=== PATIENT | female | born 2005 | race Two or more races ===

== ENCOUNTER 2025-07-08 22:49 | Emergency (ER) | payer OTHER, SELFPAY ==
[2025-07-08 22:56] VITALS: BP 108/74
[2025-07-08 23:18] LABS: Hematocrit 35.5 % (37.0-47.0); Hemoglobin 11.9 g/dL (12.0-16.0); Mean Corp Hgb Conc. 33.5 g/dL (33.0-37.0); Mean Corpuscular Volume 82.6 fL (81.0-99.0); Platelet Count 349 10^3/uL (130-400); Red Cell Dist. Width 12.2 % (11.5-14.5)
[2025-07-08 23:19] LABS: HCG, Urine Qualitative Screen Negative
[2025-07-08 23:20] LABS: Urine Character Slightly Cloudy (Clear)
[2025-07-08 23:32] LABS: Urine Red Blood Cell 0-2 /HPF (0-2); Urine Squamous Cell 0-2 /LPF (Few)
[2025-07-08 23:47] LABS: Blood Urea Nitrogen 10 mg/dl (7-17); Calcium 9.5 mg/dl (8.4-10.2); Carbon Dioxide 24 mmol/L (22-30); Chloride 108 mmol/L (98-107); Glucose 100 mg/dl (70-99); Potassium 3.9 mmol/L (3.5-5.1); Sodium 135 mmol/L (135-145); eGFR > 60.00
[2025-07-09 00:24] VITALS: BP 115/72
[2025-07-09 00:25] VITALS: BMI 25.0
[2025-07-09 01:00] VITALS: BP 107/68
[2025-07-09 02:00] VITALS: BP 112/66
--- NOTE | 2025-07-09 02:23 | DOWNTIME ---
There was a [facility] Downtime on 07/09/2025 from 0100 to 07/09/2025 at 0215. Downtime documentation of patient's care, including medication administrations, has been reconciled in the electronic record per guidelines. Refer to the
patient's paper chart under the miscellaneous tab to see printed paper medication records and downtime forms.
[2025-07-09 02:45] LABS: COVID-19 Antigen Negative (Negative)
--- NOTE | 2025-07-09 02:56 | ED.GENMED ---
History of Present Illness
<Bernabe Del Valle MD - Last Filed: 07/10/25 05:36>
General
Chief Complaint: Abdominal Symptoms
Source: patient
Exam Limitations: none
History of Present Illness
History of Present Illness:
Patient complaining of nausea. Some upper abdominal pain. Describing some respiratory symptoms over the last 3 to 4 days with congestion and cough. No current UTI symptoms. Had a UTI about a month ago. No vaginal discharge. No rash. No
photophobia. No neck pain.
Past History
<Bernabe Del Valle MD - Last Filed: 07/10/25 05:36>
Past History
ED Past Surgical History: Gynecological (Breast biopsy)
Phy Exam
<Bernabe Del Valle MD - Last Filed: 07/10/25 05:36>
Physical Exam
Physical Exam:
GENERAL: Alert and oriented in no apparent distress
EYE: Orbits normal.
NECK: Supple
CARDIAC: Regular rate and rhythm without any obvious murmurs.
LUNGS: Clear breath sounds,normal
ABDOMEN: Soft, minimal epigastric tenderness. No rebound or guarding no mass or hernia. No CVA tenderness
NEUROLOGICAL: Alert and oriented , grossly non-focal
SKIN: Warm and dry, no rash or lesion, no discoloration, skin intact.
MUSCULOSKELETAL: No edema,no deformity.Good color
PSYCH: Normal and appropriate interaction.
Course
<Bernaeb Del Valle MD - Last Filed: 07/10/25 05:36>
Orders/Labs/Results
Orders:
Orders
07/08/25 23:00
Test Result ONCE
07/08/25 23:06
Basic Metabolic Panel Urgent
Complete Blood Count/No Diff Urgent
07/08/25 23:12
HCG, Urine Qualitative Screen Urgent
Date Specimen was Collected: 07/08/25
Time Specimen was Collected: 23:00
Urinalysis Urgent
Date Specimen was Collected: 07/08/25
Time Specimen was Collected: 23:00
Urine Microscopic Urgent
Date Specimen was Collected: 07/08/25
Time Specimen was Collected: 23:00
07/09/25
CR Chest - 2 Views Urgent
Reason For Exam: cough
07/09/25 02:10
COVID-19 Antigen Routine
Lipase Routine
Edkmp-Najv-Httsagm Routine
Influenza A+B Rapid Molecular Routine
[place] Source: [facility]
Specimen Description:
07/09/25 02:25
Ondansetron Injectable [Zofran] 4 mg .ROUTE .STK-MED ONE
07/09/25 03:03
Add On- LAB Urgent
Tests Added?: urine gc/chlymadia
07/09/25 03:04
US Abdomen Complete/Upper Urgent
Comment:
Reason For Exam: Upper abdominal pain
Abnormal Lab Results
07/08/25 07/08/25
23:06 23:12
Hgb 11.9 L g/dL
(12.0-16.0)
Hct 35.5 L %
(37.0-47.0)
Chloride 108 H mmol/L
(98-107)
Glucose 100 H mg/dl
(70-99)
Urine Occult Blood 4+ A
(Negative)
Ur Leukocyte Esterase 1+ A
(Negative)
Urine WBC 6-10 A /HPF
(0-5)
Urine Albumin 1+ A
(Neg - Trace)
07/08/25 23:06
07/08/25 23:06
Vital Signs
Initial and Last Documented VS:
Initial Vital Signs
Temp Pulse Resp BP Pulse Ox
98.1 F 72 18 108/74 100
07/08/25 22:56 07/08/25 22:56 07/08/25 22:56 07/08/25 22:56 07/08/25 22:56
Last Documented Vital Signs
Temp Pulse Resp BP Pulse Ox
98.1 F 68 18 109/77 100
07/08/25 22:56 07/09/25 05:36 07/08/25 22:56 07/09/25 04:00 07/09/25 05:36
<Karel Narvaez, DO - Last Filed: 07/09/25 05:29>
Orders/Labs/Results
Orders:
Orders
07/08/25 23:00
Test Result ONCE
07/08/25 23:06
Basic Metabolic Panel Urgent
Complete Blood Count/No Diff Urgent
07/08/25 23:12
HCG, Urine Qualitative Screen Urgent
Date Specimen was Collected: 07/08/25
Time Specimen was Collected: 23:00
Urinalysis Urgent
Date Specimen was Collected: 07/08/25
Time Specimen was Collected: 23:00
Urine Microscopic Urgent
Date Specimen was Collected: 07/08/25
Time Specimen was Collected: 23:00
07/09/25
CR Chest - 2 Views Urgent
Reason For Exam: cough
07/09/25 02:10
COVID-19 Antigen Routine
Lipase Routine
Nbhlh-Ziea-Kpkglio Routine
Influenza A+B Rapid Molecular Routine
[place] Source: [facility]
Specimen Description:
07/09/25 02:25
Ondansetron Injectable [Zofran] 4 mg .ROUTE .STK-MED ONE
07/09/25 03:03
Add On- LAB Urgent
Tests Added?: urine gc/chlymadia
07/09/25 03:04
US Abdomen Complete/Upper Urgent
Comment:
Reason For Exam: Upper abdominal pain
Abnormal Lab Results
07/08/25 07/08/25
23:06 23:12
Hgb 11.9 L g/dL
(12.0-16.0)
Hct 35.5 L %
(37.0-47.0)
Chloride 108 H mmol/L
(98-107)
Glucose 100 H mg/dl
(70-99)
Urine Occult Blood 4+ A
(Negative)
Ur Leukocyte Esterase 1+ A
(Negative)
Urine WBC 6-10 A /HPF
(0-5)
Urine Albumin 1+ A
(Neg - Trace)
07/08/25 23:06
07/08/25 23:06
Vital Signs
Initial and Last Documented VS:
Initial Vital Signs
Temp Pulse Resp BP Pulse Ox
98.1 F 72 18 108/74 100
07/08/25 22:56 07/08/25 22:56 07/08/25 22:56 07/08/25 22:56 07/08/25 22:56
Last Documented Vital Signs
Temp Pulse Resp BP Pulse Ox
98.1 F 68 18 109/77 100
07/08/25 22:56 07/09/25 05:36 07/08/25 22:56 07/09/25 04:00 07/09/25 05:36
<Bernabe Del Valle MD - Last Filed: 07/10/25 05:36>
MDM/Problems Addressed
Differential Diagnosis Includes:
Symptoms described are very likely viral in nature. No serious findings on exam. No CVA tenderness. No surgical abdomen. Neck is supple. No rash. Nontoxic in appearance. Chest x-ray is negative. Labs are stable. Urine has +1 leukocyte and
6-10 whites but is otherwise unremarkable.
<Bernabe Del Valle MD - Last Filed: 07/10/25 05:36>
*Radiology
Radiology exam reviewed: preliminary read by ED provider (neg) and radiology read reviewed (neg us)
*Pulse Oximetry
SaO2: 99
Oxygen Mode of Delivery: Room air
Patient hypoxic: no
*Critical Care Note
Total Time (30-74mins, 75-104mins- exclusive of procedures): Not Applicable
<Karel Narvaez DO - Last Filed: 07/09/25 05:29>
Update Note
Update Note:
NAME: CATY GRAHAM
DATE OF EXAM: 07/09/2025
Patient No: [id number]
Physician: MILLY^JANICE
Date of : 2005
Past Medical History (entered by Technologist):
Reason For Exam (entered by Technologist):
Other Notes (entered by Technologist):
Additional Information (per [facility] Radiologist): Nausea and abdominal pain
ABDOMINAL ULTRASOUND
IMPRESSION
The gallbladder and visualized biliary system are unremarkable. No gallstones or sonographic Horvath's sign. Kidneys and spleen are unremarkable. Remainder of the visualized upper abdomen is unremarkable.
Case finalized on 07/09/25 04:57 EDT
Ana Elizabeth M.D.
This report has been electronically signed and verified by the Radiologist whose name is printed above.
ED Attending Note
<Bernabe Del Valle MD - Last Filed: 07/10/25 05:36>
-
Portions of this chart may have been created with voice recognition software.� Occasional wrong word or��sound alike� substitutions may have occurred due to the inherent limitations of voice recognition software.
Discharge Plan
Departure
Patient Disposition: Home (Routine Discharge)
Date of Disposition: 07/09/25
Time of Disposition: 05:29
Patient with high blood pressure during this ER visit?: No
Discharge Problem:
Abdominal pain, Acute viral syndrome
Instructions: Abdominal Pain
Prescriptions:
New
ondansetron 4 mg tablet,disintegrating
4 mg PO Q6H 5 Days Qty: 20 0RF
Referrals:
Aubrey MOORE [Other]
Interventions
Interventions:
*Risk Screen - Suicide Last Done: 07/08/25 22:56
*General Assessment Last Done: 07/09/25 00:25
*Neglect/Abuse Screening Last Done: 07/08/25 22:56
*ED- Fall Risk Assessment Last Done: 07/09/25 00:25
*ED COVID-19 Vaccine History Last Done: 07/09/25 00:25
*ED Influenza Vaccine History Last Done: 07/09/25 00:25
*Nursing Disposition Last Done: 07/09/25 05:36
HB-Mokacd-Gstbpjgrjl Assessment Last Done: 07/09/25 00:25
ED-Female Genitourinary Assessment Last Done: 07/09/25 00:25
Discharge Date and Time
Discharge Date/Time: 07/09/25 05:36
Print Language: DIVEHI
[2025-07-09 02:57] LABS: ALT (SGPT) 12 U/L (0-35); AST (SGOT) 19 U/L (14-36); Albumin 4.2 g/dl (3.5-5.0); Alkaline Phosphatase 64 U/L (38-126); Lipase 26 U/L (23-300); Total Protein 7.2 g/dl (6.3-8.2)
[2025-07-09 03:00] VITALS: BP 116/67
[2025-07-09 04:00] VITALS: BP 109/77
== END 2025-07-09 05:36 | disposition home or self-care (01) ==
LOC: EMR 22:49
PROVIDERS: Student in an Organized Health Care Education/Training Program; EMERGENCY PHYSICIAN Emergency Medicine
DX: R11.0 Nausea (principal); R10.30 Lower abdominal pain, unspecified; Z11.52 Encounter for screening for COVID-19
CPT/HCPCS: 99284; 71046; 76700; 80048; 80076; 81003; 81015; 81025; 83690; 85027; 87502; 87811